=== PATIENT | male | born 1955 | race Caucasian/White ===

== ENCOUNTER 2016-10-21 08:36 | Day surgery (SDC) | payer OTHER ==
[2016-10-18 09:45] VITALS: BMI 28.4
[~2016-10-21 08:36] MED LIST: HEPARIN SODIUM,PORCINE 5,000 UNIT/ML 1 ML VIAL SQ ONE; LACTATED RINGERS 1,000 ML IV SCH; ceFAZolin 2 GM in SODIUM CHLORIDE 0.9% 100 ML IVPB ONE; fentaNYL (PF) 50 MCG/ML 2 ML AMP IV PRN
[2016-10-21 09:10] VITALS: RESP 16
[2016-10-21] MEDS ORDERED: LIDOCAINE 1% 20 ML VIAL (10MG/ML) FOR IV START INTRADERMA ONE (09:27)
--- NOTE | 2016-10-21 10:28 | P.GSHP ---
History of Present Illness H&P Date: 10/21/16 Chief Complaint: Right upper quadrant pain Assessment 61-year-old male referred from Dr. Konstantin Martinez. Patient complains of right upper quadrant pain. His recent HIDA scan shows evidence of chronic cholecystitis. He presents for laparoscopic cholecystectomy Past Medical History Past Medical History: No Reported History History of Any Multi-Drug Resistant Organisms: None Reported Past Surgical History: Orthopedic Surgery Additional Past Surgical History / Comment(s): RIGHT KNEE-ARTHROTOMY , COLONOSCOPY Past Anesthesia/Blood Transfusion Reactions: Previous Problems w/ Anesthesia Additional Past Anesthesia/Blood Transfusion Reaction / Comment(s): SEVERE HEADACHE WITH SPINAL Smoking Status: Never smoker - Past Family History Mother Family Medical History: Cancer Additional Family Medical History / Comment(s): LEUKEMIA Father Family Medical History: Coronary Artery Disease (CAD) Medications and Allergies Home Medications Medication Instructions Recorded Confirmed Type Ranitidine HCl [Zantac] 225 mg PO DAILY 10/18/16 10/21/16 History Allergies Allergy/AdvReac Type Severity Reaction Status Date / Time No Known Allergies Allergy Verified 10/21/16 09:07 Surgical - Exam Vital Signs Temp Pulse Resp BP Pulse Ox 97.7 F 87 16 116/77 95 10/21/16 09:08 10/21/16 09:08 10/21/16 09:08 10/21/16 09:08 10/21/16 09:08 - General well developed, no distress, moderate distress - Eyes PERRL - ENT normal pinna - Neck no masses - Respiratory normal expansion - Cardiovascular Rhythm: regular - Abdomen Abdomen: soft, non tender Assessment and Plan Plan: Chronic cholecystitis. We'll perform laparoscopic cholecystectomy.
[2016-10-21] MEDS ORDERED: LIDOCAINE 2%-EPI 1:100,000 20 ML VIAL SQ ONE (10:41)
[2016-10-21] MEDS ORDERED: BUPIVACAINE (PF) 0.25% 30 ML VIAL SQ ONE (10:42)
[2016-10-21] MEDS ORDERED: ROCURONIUM BROMIDE 10 MG/ML 10 ML VIAL IV ONE (10:43)
[2016-10-21] MEDS ORDERED: HYDROmorphone (PF) 1 MG/ML ONE (10:43)
[2016-10-21] MEDS ORDERED: KETOROLAC 30 MG/ML 1 ML VIAL ONE (10:43)
[2016-10-21] MEDS ORDERED: fentaNYL (PF) 50 MCG/ML 2 ML AMP ONE (10:43)
[2016-10-21] MEDS ORDERED: SUCCINYLCHOLINE CHLORIDE 100 MG/5 ML SYR IV ONE (10:43)
[2016-10-21] MEDS ORDERED: MIDAZOLAM 2 MG/2 ML VIAL ONE (10:43)
[2016-10-21] MEDS ORDERED: PROPOFOL 10 MG/ML 20 ML VIAL IV ONE (10:43)
[2016-10-21] MEDS ORDERED: LIDOCAINE 1% INJ 10MG/ML (20 ML MDV) ONE (10:43)
[2016-10-21] MEDS ORDERED: LACTATED RINGERS 1,000 ML IV ONE (11:20)
--- NOTE | 2016-10-21 11:32 | P.OP ---
Date of Procedure: 10/21/16 Preoperative Diagnosis: Cholecystitis Postoperative Diagnosis: Cholecystitis Procedure(s) Performed: Laparoscopic cholecystectomy Implants: Anesthesia: VANDANA Surgeon: Rohan Abad Estimated Blood Loss (ml): 5 Pathology: other (Tao bladder) Condition: stable Disposition: PACU Indications for Procedure: Operative Findings: Description of Procedure: The patient was placed on the operating table. The patient received a general endotracheal tube anesthesia. The patients abdomen was prepped and draped in the usual sterile fashion. Through an infraumbilical stab incision, the fascia of the anterior abdominal wall was grasped with a pair of Kochers and then the Veress needle was placed in the peritoneal cavity. Position of the Veress needle was confirmed with positive drop test. The abdomen was then insufflated. After adequate insufflation, the 10 mm trocar was placed in the peritoneal cavity. Following this the laparoscope was placed in the peritoneal cavity. The patient was placed in the head-up, right side up position and then a 5 mm trocar was placed in the right lateral and right subcostal position under direct visualization. A 8 mm trocar was placed in the epigastric position. The gallbladder was grasped in the fundus and infundibulum. Traction on the gallbladder was placed in the lateral and the cephalad positions. The triangle of Calot was visualized.. The cystic duct was bluntly dissected until the union of the cystic duct and common bile duct was seen. The cystic duct was then divided and sealed with the Harmonic scissors. A PDS Endoloop was then placed throughout the cystic duct stump. The cystic artery divided and sealed with the Harmonic scissors. The gallbladder was then removed from the liver bed using Harmonic scissors. The gallbladder was then extracted through the epigastric port site. Operative field was checked for any bleeding spots and Harmonic scissors was used to coagulate the liver bed. The abdomen was irrigated. The trocars were removed. The skin was closed using interrupted 3-0 Vicryl suture. Dermabond dressing were applied. The patient tolerated the procedure well.
[2016-10-21 11:47] VITALS: TEMP 97.2
[2016-10-21] MEDS: HYDROmorphone 1 MG/ML 1 ML SYRINGE IVP PRN ×2 (11:51→11:58)
[2016-10-21 12:57] VITALS: BP 133/90; PULSE 74
== END 2016-10-21 13:33 | disposition home or self-care (01) ==
LOC: OR 08:36
PROVIDERS: ATTEND Surgery
DX: K80.12 Calculus of gallbladder with acute and chronic cholecystitis without obstruction (principal); K21.9 Gastro-esophageal reflux disease without esophagitis; Z79.899 Other long term (current) drug therapy
CPT/HCPCS: 88304; 47562; J2250; J1644; J0690; J2001; J3010; J1885; J1170; J0330; J2704

== ENCOUNTER → 2021-03-06 | Outpatient (CLI) | payer BC ==
--- NOTE | 2021-03-06 10:53 | MR ---
EXAMINATION TYPE: MR shoulder RT wo con DATE OF EXAM: 03/06/2021 COMPARISON: Exam 02/27/2021 HISTORY: Right shoulder pain TECHNIQUE: Multiplanar, multisequence imaging of the right shoulder is performed without contrast. FINDINGS: Rotator Cuff: There is abnormal signal within the rotator cuff, long the anterior aspect at the inser tion of the rotator cuff there is some focal discontinuity present. Fluid signal is present at this l evel. Acromioclavicular Joint: Distal acromion is down turn, there is a distal acromial spur. Arthropathy i s present at the acromioclavicular joint. There is some fluid signal present at the acromioclavicular joint, acromioclavicular ligaments thought to be intact. Fluid signal extends medially, there is a f luid collection present medial to the joint and anterior to the scapular spine measuring approximatel y 1 cm in size, there are some probable ossific fragments at this level, largest measures approximate ly 4.6 mm, possible loose bodies, synovial osteochondromatosis Glenohumeral Joint: Intact Labrum: No evident tear Biceps Tendon: Long head of biceps tendon shows slight medial displacement, appears perched at the me dial aspect of the bicipital groove. Bone marrow signal: Probable pseudocyst present about the level of the medial aspect of the bicipital groove Other: There is fluid signal in the subacromial subdeltoid bursa IMPRESSION: Partial full-thickness tear of the rotator cuff is suspected. Correlate for impingement. Findings at the acromioclavicular joint as described. Long head of biceps tendon appears perched.
== END | disposition home or self-care (01) ==
LOC: RADMRIMAIN 07:31
PROVIDERS: ATTEND Orthopaedic Surgery
DX: M12.811 Other specific arthropathies, not elsewhere classified, right shoulder (principal); M25.711 Osteophyte, right shoulder; M25.811 Other specified joint disorders, right shoulder

== ENCOUNTER 2021-10-17 06:14 | Day surgery (SDC) | payer BC ==
[2021-10-16 08:42] VITALS: BMI 29.1
--- NOTE | 2021-10-16 23:31 | HP ---
HISTORY AND PHYSICAL DATE OF SURGERY: 10/17/2021. HISTORY OF PRESENT ILLNESS: Jesús Wray is a 66-year-old patient seen with progressive right shoulder pain. After having treatment options discussed, he elected to proceed with right shoulder arthroscopy. Consent was obtained. PAST MEDICAL HISTORY: Hypertension. PAST SURGICAL HISTORY: Knee arthroscopy. DAILY MEDICATIONS: 1. Losartan. 2. Timolol. ALLERGIES: None. SOCIAL HISTORY: Denies tobacco use. PHYSICAL EVALUATION OF THE RIGHT SHOULDER: Flexion is 110 degrees, abduction is 80 degrees, external rotation is 30 degrees with some significant weakness and pain. Tenderness along the anterolateral acromion and rotator cuff insertion. Impingement is positive at 80. Drop-arm sign is positive. Cross-body adduction sign is positive. Distal neurovascular exam is intact. RADIOGRAPHS: Right shoulder radiographs revealed a type 2 acromion with acromioclavicular joint osteoarthritis and cystic changes of the tuberosity. A right shoulder MRI revealed a rotator cuff tendon tear with acromial spur formation and acromioclavicular joint osteoarthritic changes. IMPRESSION: 1. Right shoulder impingement with rotator cuff tear. 2. Right shoulder acromioclavicular joint osteoarthritis. 3. Hypertension. PLAN: Right shoulder arthroscopy with subacromial decompression, arthroscopic rotator cuff repair, Fariha procedure, and debridement. MMODL / IJN: [id number] /
[~2021-10-17 06:14] MED LIST changes: +DEXAMETHASONE SOD PHOSPHATE 4 MG/ML 1 ML VIAL IV ONE; -HEPARIN SODIUM,PORCINE 5,000 UNIT/ML 1 ML VIAL SQ ONE; +ONDANSETRON 4 MG/2 ML VIAL IVP ONE; -ceFAZolin 2 GM in SODIUM CHLORIDE 0.9% 100 ML IVPB ONE; -fentaNYL (PF) 50 MCG/ML 2 ML AMP IV PRN
[2021-10-17] MEDS ORDERED: ONDANSETRON 4 MG/2 ML VIAL IVP PRN (07:00)
[2021-10-17] MEDS ORDERED: HYDROmorphone 0.5 MG/0.5 ML SYRINGE IVP PRN (07:00)
[2021-10-17] MEDS ORDERED: fentaNYL (PF) 50 MCG/ML 2 ML AMP IVP ONE (07:16)
[2021-10-17] MEDS ORDERED: MIDAZOLAM 2 MG/2 ML VIAL IVP ONE (07:16)
[2021-10-17] MEDS ORDERED: LIDOCAINE 2% INJ 20 MG/ML (2 ML VIAL) ONE (07:54)
[2021-10-17] MEDS ORDERED: fentaNYL (PF) 50 MCG/ML 2 ML AMP ONE (07:54)
[2021-10-17] MEDS ORDERED: MIDAZOLAM 2 MG/2 ML VIAL ONE (07:54)
[2021-10-17] MEDS ORDERED: ROPIVACAINE 5 MG/ML 30 ML VIAL ONE (07:54)
[2021-10-17] MEDS ORDERED: SUCCINYLCHOLINE CHLORIDE 200 MG/10 ML VIAL IV ONE (07:54)
[2021-10-17] MEDS ORDERED: PROPOFOL 10 MG/ML 20 ML VIAL IV ONE (07:54)
[2021-10-17 10:17] VITALS: TEMP 96.9
[2021-10-17 10:26] VITALS: RESP 16
--- NOTE | 2021-10-17 10:55 | P.ANPRN ---
Procedure Note - Anesthesia - Nerve Block Performed Right Interscalene Single Time Out Performed: Yes ([id number]) Date of Procedure: 10/17/21 Procedure Start Time: 07:16 Procedure Stop Time: :21 Location of Patient: PreOp Indication: Acute Post-Operative Pain, Requested by Surgeon Specifically requested for management of pain by DrAyah: Vladimir Watts Sedation Type: Sedate with meaningful contact maintained Preparation: Sterile Prep Position: Supine Catheter: None Needle Types: Pajunk Needle Gauge: 21 Ultrasound used to visualize needle placement: Yes Ultrasound used to observe medication spread: Yes Injectate: 0.5% Ropivacaine (see comment for volume) (30cc) Blood Aspirated: No Pain Paresthesia on Injection Noted: No Resistance on Injection: Normal Image Stored and Saved: Yes Events: Uneventful and Well Tolerated
[2021-10-17 11:33] VITALS: BP 130/76; PULSE 61
--- NOTE | 2021-10-17 13:28 | OP ---
OPERATIVE REPORT PREOPERATIVE DIAGNOSIS: Right shoulder impingement. POSTOPERATIVE DIAGNOSES: 1. Right shoulder rotator cuff tear. 2. Right shoulder impingement. 3. Right shoulder partial long head biceps tendon tear. PROCEDURES PERFORMED: 1. Right shoulder arthroscopic rotator cuff repair. 2. Right shoulder arthroscopic subacromial decompression. 3. Right shoulder arthroscopic biceps tenotomy. IMPLANTS: 5-4.75 Arthrex SwiveLock anchors. ANESTHESIA: General along with an interscalene block. ESTIMATED BLOOD LOSS: 11 mL. PATHOLOGY: None sent. CONDITION: Stable. DISPOSITION: PACU. INDICATIONS FOR PROCEDURE: A 66-year-old gentleman seen with progressive right shoulder pain. We discussed options for treatment. He elected to proceed with arthroscopy. Consent was obtained. DESCRIPTION OF PROCEDURE: The patient was taken to the operative suite after having undergone an interscalene block by Department of Anesthesia for postoperative pain management. He underwent a general anesthetic by Department of Anesthesia. He was placed in lateral position appropriately padding all the bony prominence. He was secured. The right upper extremity was placed in longitudinal traction with 10 pounds. The right shoulder was now prepped and draped in normal sterile orthopedic fashion. A posterior incision was made for posterior working portal site. The trocar camera was inserted into the glenohumeral joint. Arthroscopy was initiated. There was significant partial tear on the long head biceps tendon. The labrum was stable. There were mild grade 1 chondromalacia changes. I performed arthroscopic biceps tenotomy. I again probed the superior labrum, and it was stable. At this point, instruments were removed from the glenohumeral joint. Utilizing the posterior working portal site, I introduced the scope into the subacromial space. Arthroscopy was initiated. Anterior incision was made for anterior working portal site. A lateral incision was made for lateral working portal site. Arthroscopy in the subacromial space was initiated. There was thick subacromial bursal tissue, which I meticulously excised exposing the undersurface of the anterior acromion, which was very prominent. There was also a very large os acromiale, which was approximately 70% of the whole anterior acromion. I performed a decompression and also excised some osteophytes off the inferior aspect of the clavicle distally. The AC joint revealed moderate arthritis, not enough to warrant a Fariha procedure. I now turned my attention to the rotator cuff tendon. There was a 2.5 to 3 cm complex tear with some delamination. I debrided the margins getting down to a stable tendon tissue. I debrided the footprint with a motorized bur. I could pull that tendon over the footprint. At this point, I made a lateral accessory portal site off the acromion. With the assistance of Mateo Guerrero, I punched 2 holes in the medial area for insertion of medial-row anchors, and 2 anchors were inserted both having 4 stitches each. With the assistance of PAMELA Allred, I passed the rotator cuff tendon. We then crisscrossed the suture. I created lateral punch holes for insertion of our anchors. The 4 limbs of suture were passed through the eyelet of a 4.75 Arthrex SwiveLock anchor. The anchor was placed into the pre-punched hole. I held it in position while PAMELA Allred, tensioned the sutures and deployed the anchor with good fixation noted. We did it to our posterolateral anchor as well with good purchase noted. Residual suture limbs were clipped. We noted some fracturing of the tuberosity where one of the anchors was placed. I now passed 2 additional sutures and then placed 1 more anchor laterally securing that fragment. Once secured, all residual suture limbs were clipped. We had a good repair with good compression of the tendon of the footprint. At this point, instruments were removed from the subacromial space. All port sites were approximated with nylon suture. Sterile dressings were applied. The patient was placed into a shoulder immobilizer, was awakened and transferred to a bed in Recovery in stable condition. Mateo Guerrero assisted with the procedure. MMODL / EARLN: [id number] /
== END 2021-10-17 12:18 | disposition home or self-care (01) ==
LOC: OR 06:14
PROVIDERS: ATTEND Orthopaedic Surgery
DX: M75.101 Unspecified rotator cuff tear or rupture of right shoulder, not specified as traumatic (principal); M75.41 Impingement syndrome of right shoulder; S46.111A Strain of muscle, fascia and tendon of long head of biceps, right arm, initial encounter; M94.211 Chondromalacia, right shoulder; M19.011 Primary osteoarthritis, right shoulder; G89.18 Other acute postprocedural pain; X58.XXXA Exposure to other specified factors, initial encounter; I10 Essential (primary) hypertension; Z79.899 Other long term (current) drug therapy; Z82.49 Family history of ischemic heart disease and other diseases of the circulatory system; Z80.6 Family history of leukemia
CPT/HCPCS: 64415; 76942; 29827; 29826; C1713 ×4; J2250; J0330; J1100; J0690; J2405; J3010; J2795; J2704; J2001